=== PATIENT | female | born 1980 | race Caucasian/White ===

== ENCOUNTER 2022-08-28 23:12 | Emergency (ER) | payer MEDICAID ==
[~2022-08-28] VITALS: Ht 162.6 cm; Wt 90.4 kg
[2022-08-29] MEDS ORDERED: ACETAMINOPHEN 325MG TABLET PO ONE (02:30)
[2022-08-29] MEDS ORDERED: DIAZEPAM 2 MG TABLET PO ONE (02:30)
[2022-08-29 03:26] VITALS: BP 145/100
== END 2022-08-29 04:04 | disposition home or self-care (01) ==
LOC: ER 23:12
DX: G89.29 Other chronic pain (principal); R51.9 Headache, unspecified; F17.200 Nicotine dependence, unspecified, uncomplicated
CPT/HCPCS: 81025; 99283